=== PATIENT | male | born 1990 | race Caucasian/White ===

== ENCOUNTER 2021-06-05 12:18 | Emergency (ER) | payer OTHER ==
[2021-06-05 13:15] VITALS: BP 146/86; PULSE 66; TEMP 98.2; BMI 33.4
[2021-06-05] MEDS ORDERED: IBUPROFEN 600 MG TABLET (FP) PO ONE ×2 (14:19→14:21)
== END 2021-06-05 14:24 | disposition home or self-care (01) ==
LOC: JERFT 12:18
DX: F07.81 Postconcussional syndrome (principal)
CPT/HCPCS: 99283-25

== ENCOUNTER 2022-01-10 19:33 | Emergency (ER) | payer OTHER ==
[2022-01-10 19:52] VITALS: BP 131/83; PULSE 103; TEMP 98.2; BMI 34.4
[2022-01-10] MEDS ORDERED: IBUPROFEN 600 MG TABLET (FP) PO ONE ×2 (20:07→20:10)
== END 2022-01-10 20:51 | disposition home or self-care (01) ==
LOC: JERFT 19:33
DX: R68.84 Jaw pain (principal); Y04.0XXA Assault by unarmed brawl or fight, initial encounter; Y92.9 Unspecified place or not applicable
CPT/HCPCS: 70110-TC-FY; 99284-25

== ENCOUNTER 2022-06-04 17:20 | Emergency (ER) | payer OTHER ==
[2022-06-04 17:34] VITALS: BP 144/101; RESP 18; TEMP 98; BMI 35.2
[2022-06-04] MEDS ORDERED: IBUPROFEN 600 MG TABLET (FP) PO ONE ×2 (21:35→21:44)
[2022-06-04 22:12] VITALS: PULSE 81
== END 2022-06-04 22:22 | disposition home or self-care (01) ==
LOC: JERFT 17:20
DX: S00.03XA Contusion of scalp, initial encounter (principal); S50.02XA Contusion of left elbow, initial encounter; Y00.XXXA Assault by blunt object, initial encounter
CPT/HCPCS: 73070-TC-LT-FY; 99283-25